=== PATIENT | female | born 1985 | race Hispanic/Latino ===

== ENCOUNTER 2020-08-05 14:19 | Outpatient (CLI) | payer OTHER, MEDICAID ==
--- NOTE | 2020-08-05 15:57 | Vascular Lab Report ---
Bilateral lower extremity Doppler venous ultrasound INDICATION: Edema FINDINGS: Bilateral common femoral veins, superficial femoral veins and popliteal veins have normal c ompressibility and phasic flow. Reflux is incidentally noted within the right common femoral vein and popliteal vein. IMPRESSION: Reflux in the right lower extremity. No evidence for DVT. Signer Name: Lio Cohn MD Signed: 08/05/2020 3:52 PM Workstation Name: [id number]
== END 2020-08-05 14:20 | disposition home or self-care (01) ==
LOC: VAS 14:19
PROVIDERS: ATTEND Family Medicine
DX: R60.0 Localized edema (principal)